=== PATIENT | female | born 1985 | race African-American/Black ===

== ENCOUNTER 2022-12-13 20:53 | Inpatient (IN) | payer OTHER ==
[2022-12-13] MEDS ORDERED: Ondansetron PF 4 MG/2 ML Vial IVP PRN (20:56)
[2022-12-13] MEDS ORDERED: hydrALAZINE 20 MG/ML VIAL SLOW IVP PRN ×2 (20:56→23:59)
[2022-12-13] MEDS ORDERED: Promethazine HCl 25 MG/ML VIAL IM PRN (20:56)
[2022-12-13] MEDS ORDERED: Lactated Ringer's 1,000 ML IV SCH ×2 (21:30→22:00)
[2022-12-13 21:41] VITALS: BMI 39.9
[2022-12-13 21:44] LABS: Acetaminophen Less than 10.0 mcg/mL (10.0-30.0); Alcohol Less than 10 mg/dL (Less than 10); Salicylate Less than 8.0 mg/dL (15.0-30.0)
[2022-12-13] MEDS ORDERED: Acetaminophen 500 MG TAB PO SCH (21:45)
[2022-12-13 21:46] LABS: Bilirubin Neg (Negative); Blood, Urine 50 (Negative); Clarity Slightly Cloudy (Clear); Glucose, Urine (Dipstick) >=1000 mg/dL (Negative); Ketone, Urine 50 mg/dL (Negative); Leukocyte 25 (Negative); Nitrite Negative (Negative); Protein, Urine (Dipstick) 500 mg/dl (Neg-Trace); Urobilinogen Normal mg/dL (Less than 2)
[2022-12-13 21:55] LABS: Amphetamine Not Detected (NotDetected); Barbiturates Screen Not Detected (NotDetected); Benzodiazepine Screen Not Detected (NotDetected); Cocaine Metabolite Screen Not Detected (NotDetected); Methadone Not Detected (NotDetected); Methamphetamine Not Detected (NotDetected); Opiate Screen Not Detected (NotDetected); Oxycodone Screen Not Detected (NotDetected); Phencyclidine (PCP) Not Detected (NotDetected); THC/Cannabinoid Screen Detected (NotDetected); Tricyclic Screen Not Detected (NotDetected)
[2022-12-13] MEDS ORDERED: Dextrose 5% in Water 1,000 ML IV PRN (21:56)
[2022-12-13] MEDS ORDERED: Dextrose 50% Abboject 50 ML SYRINGE SLOW IVP PRN (21:56)
[2022-12-13] MEDS ORDERED: HumaLOG 300 UNITS/3 ML VIAL SC PRN (21:56)
[2022-12-13 22:12] LABS: Fetal Membranes Rupture No Membranes Rupture (No Rupture)
[2022-12-13] MEDS ORDERED: Lantus 1000 UNITS/10 ML VIAL SC SCH (22:15)
[2022-12-13] MEDS ORDERED: Famotidine/PF 20 mg/2ml Vial SLOW IVP PRN (22:19)
[2022-12-13] MEDS ORDERED: Bicitra 30 ML UDCUP PO PRN (22:19)
[2022-12-13 22:23] LABS: Bacteria/HPF Rare-Few HPF (None Seen); Mucous/LPF 1+ LPF (<2+)
[2022-12-13 22:27] LABS: HBSAg Index 0.11 S/CO (0-0.99); HIV (1/2) Antibody/Antigen Non-Reactive (NonReactive); HIV 1/2 INDEX 0.12 S/CO (<1.00); Hep B Surf Ag Non-Reactive S/CO (NonReactive); Syphilis Antibody Nonreactive (Nonreactive); Syphilis Antibody Index 0.05 S/CO (<1.00 Non-Reactive); Thyroid Stimulating Hormone 2.2277 uIU/mL (0.35-4.94)
[2022-12-13] MEDS ORDERED: CEFAZOLIN 2 GM in Sodium Chloride 0.9% 100 ML IVPB SCH (22:30)
[2022-12-13] MEDS ORDERED: Fentanyl 100 MCG/2 ML VIAL ONE (22:33)
[2022-12-13] MEDS ORDERED: Morphine PF 10 MG/10 ML VIAL ONE (22:33)
[2022-12-13] MEDS ORDERED: Carboprost 250 MCG/ML AMP ONE (22:48)
[2022-12-13] MEDS ORDERED: Misoprostol 200 MCG TAB ONE (22:48)
[2022-12-13] MEDS ORDERED: Methylergonovine 0.2 MG/ML VIAL ONE (22:48)
[2022-12-13] MEDS ORDERED: Tranexamic Acid 1,000 MG/10 ML VIAL ONE (22:48)
[2022-12-13] MEDS ORDERED: Azithromycin 500 MG in Sodium Chloride 0.9% 250 ML 250 ML IVPB SCH (23:00)
[2022-12-13 23:08] LABS: Glucose 287 mg/dL (70-105)
[2022-12-13] MEDS ORDERED: Ondansetron PF 4 MG/2 ML Vial ONE (23:27)
[2022-12-13] MEDS ORDERED: Phenylephrine 10 MG/ML VIAL ONE (23:28)
[2022-12-13] MEDS ORDERED: Dexamethasone 4 mg/ml Vial ONE (23:28)
[2022-12-13] MEDS ORDERED: NS w/ Oxytocin 30 units 500 ML IV SCH (23:45)
[2022-12-13] MEDS ORDERED: Acetaminophen 325 MG TAB PO PRN (23:59)
[2022-12-13] MEDS ORDERED: Zolpidem Tartrate 5 MG TAB PO PRN (23:59)
[2022-12-13] MEDS ORDERED: Simethicone Chewable 80 MG TAB PO PRN (23:59)
[2022-12-13] MEDS ORDERED: Boostrix 0.5 ML (Tdap) VIAL (>/=7 yrs of age) IM ONE (23:59)
[2022-12-13] MEDS ORDERED: Lanolin Ointment 7 GM TUBE TOP PRN (23:59)
[2022-12-14] MEDS ORDERED: Ketorolac Tromethamine 30 MG/ML VIAL ONE (00:15)
[2022-12-14] MEDS ORDERED: Promethazine HCl 25 MG SUPP PR PRN (01:03)
[2022-12-14] MEDS ORDERED: Naloxone HCl 0.4 mg/ml Vial IV PRN (01:03)
[2022-12-14] MEDS ORDERED: Naloxone HCl 0.4 mg/ml Vial IVP PRN ×2 (01:03)
[2022-12-14] MEDS ORDERED: Fentanyl 100 MCG/2 ML VIAL SLOW IVP PRN (01:03)
[2022-12-14] MEDS ORDERED: Promethazine HCl 25 MG/ML VIAL IM PRN (01:03)
[2022-12-14] MEDS ORDERED: Meperidine HCl/PF 25 MG/ML VIAL SLOW IVP PRN (01:03)
[2022-12-14] MEDS ORDERED: HYDROmorphone 2 MG/ML VIAL SLOW IVP PRN (01:03)
[2022-12-14] MEDS ORDERED: Ondansetron HCl/PF 4 MG/2 ML Vial IVP PRN (01:03)
[2022-12-14] MEDS ORDERED: Ondansetron PF 4 MG/2 ML Vial IVP PRN (01:03)
[2022-12-14] MEDS ORDERED: Moisturizing Cream (Eucerin) 113 GM JAR TOP PRN (01:03)
[2022-12-14] MEDS ORDERED: Ketorolac Tromethamine 30 MG/ML VIAL IVP SCH (01:15)
[2022-12-14] MEDS ORDERED: Communication Order-Pharmacy FS SCH (01:15)
[2022-12-14 01:58] LABS: #Monocytes 0.3 10x3/uL (0.0-1.1); #Neutrophils 6.1 10x3/uL (1.5-8.4); %Basophils 0.1 % (0.0-2.0); %Lymphocytes 10.9 % (18.0-47.0); %Monocytes 4.5 % (0.0-10.0); %Neutrophils 84.4 % (40.0-75.0); Hemoglobin 9.4 g/dL (12.0-15.5); Mean Corpuscular HGB CONC 31.5 g/dL (32.0-36.0); Mean Corpuscular Hemoglobin 24.3 pg (27.0-33.0); Mean Platelet Volume 10.9 fl (7.4-10.4); Platelet Count 251 10x3/uL (150-450); RBC Distribution Width 15.9 % (11.5-14.5); Red Blood Cell (RBC) Count 3.87 10x6/uL (3.90-5.03); White Blood Cell (WBC) Count 7.3 10x3/uL (3.5-10.5)
[2022-12-14 04:12] LABS: #Monocytes 0.5 10x3/uL (0.0-1.1); #Neutrophils 8.4 10x3/uL (1.5-8.4); %Basophils 0.1 % (0.0-2.0); %Lymphocytes 7.5 % (18.0-47.0); %Monocytes 4.7 % (0.0-10.0); %Neutrophils 87.3 % (40.0-75.0); Hemoglobin 9.2 g/dL (12.0-15.5); Mean Corpuscular HGB CONC 31.7 g/dL (32.0-36.0); Mean Corpuscular Hemoglobin 24.5 pg (27.0-33.0); Mean Corpuscular Volume 77.3 fl (81.6-98.3); Mean Platelet Volume 11.5 fl (7.4-10.4); Platelet Count 255 10x3/uL (150-450); RBC Distribution Width 15.8 % (11.5-14.5); Red Blood Cell (RBC) Count 3.75 10x6/uL (3.90-5.03); White Blood Cell (WBC) Count 9.6 10x3/uL (3.5-10.5)
[2022-12-14 04:23] LABS: ALT (SGPT) 10 U/L (8-55); AST (SGOT) 10 U/L (5-34); Albumin 2.9 g/dL (3.5-5.0); Alkaline Phosphatase 83 U/L (40-110); Anion Gap 16 mmol/L (10-20); BUN (Urea Nitrogen) 9 mg/dL (7.0-18.7); Bilirubin, Total 0.3 mg/dL (0.2-1.2); Calc. Creatinine Clearance 167 mL/min (70-130); Calcium 8.7 mg/dL (7.8-10.44); Carbon Dioxide 16 mmol/L (22-29); Chloride 101 mmol/L (98-107); Estimated GFR 98; Glucose 326 mg/dL (70-105); Potassium 4.1 mmol/L (3.5-5.1); Protein, Total 6.9 g/dL (6.0-8.3); Sodium 129 mmol/L (136-145)
[2022-12-14] MEDS: diphenhydrAMINE 50 MG/ML VIAL IVP PRN ×2 (05:01→09:12)
[2022-12-14] MEDS: Ketorolac Tromethamine 30 MG/ML VIAL IVP PRN ×3 (05:48→21:06)
[2022-12-14] MEDS ORDERED: Ampicillin/Sulbactam 1.5 GM in Sodium Chloride 0.9% 100 ML IVPB SCH (06:00)
[2022-12-14] MEDS ORDERED: Ibuprofen 800 MG TAB PO SCH (06:00)
[2022-12-14] MEDS: HumaLOG 300 UNITS/3 ML VIAL SC PRN ×6 (06:20→21:18)
[2022-12-14] MEDS ORDERED: Lantus 1000 UNITS/10 ML VIAL SC SCH ×2 (06:30→21:00)
[2022-12-14] MEDS ORDERED: Lactated Ringer's 1,000 ML IV SCH ×2 (06:30→07:19)
[2022-12-14] MEDS: Prenatal Vitamin 1 TAB PO SCH (07:35)
[2022-12-14] MEDS: Ferrous Sulfate 325 MG TAB PO SCH ×2 (07:35→21:04)
[2022-12-14] MEDS: Docusate 100 MG CAP PO SCH ×2 (07:35→21:04)
[2022-12-14 10:34] LABS: Amphetamine Not Detected (NotDetected); Barbiturates Screen Not Detected (NotDetected); Benzodiazepine Screen Not Detected (NotDetected); Cocaine Metabolite Screen Not Detected (NotDetected); Methadone Not Detected (NotDetected); Methamphetamine Not Detected (NotDetected); Opiate Screen Not Detected (NotDetected); Oxycodone Screen Not Detected (NotDetected); Phencyclidine (PCP) Not Detected (NotDetected); THC/Cannabinoid Screen Not Detected (NotDetected); Tricyclic Screen Not Detected (NotDetected)
[2022-12-14] MEDS: Ampicillin/Sulbactam 3 GM in Sodium Chloride 0.9% 100 ML IVPB SCH ×2 (12:43→17:53)
[2022-12-14 13:01] LABS: Hemoglobin A1c 10.9 % (4.0-6.0)
[2022-12-14 13:57] LABS: Hep C IgG Ab Non-Reactive (NonReactive)
[2022-12-14] MEDS: HYDROcodone/Acetaminophen 5/325 mg Tablet PO PRN ×2 (14:29→21:04)
[2022-12-14 14:43] LABS: Anion Gap 12 mmol/L (10-20); BUN (Urea Nitrogen) 10 mg/dL (7.0-18.7); Calc. Creatinine Clearance 197 mL/min (70-130); Calcium 8.5 mg/dL (7.8-10.44); Carbon Dioxide 18 mmol/L (22-29); Chloride 105 mmol/L (98-107); Estimated GFR 116; Glucose 189 mg/dL (70-105); Potassium 3.8 mmol/L (3.5-5.1); Sodium 131 mmol/L (136-145)
[2022-12-15] MEDS: Ampicillin/Sulbactam 3 GM in Sodium Chloride 0.9% 100 ML IVPB SCH ×3 (00:12→12:35)
[2022-12-15] MEDS: HumaLOG 300 UNITS/3 ML VIAL SC PRN ×3 (00:25→12:38)
[2022-12-15 04:23] LABS: Anion Gap 12 mmol/L (10-20); BUN (Urea Nitrogen) 13 mg/dL (7.0-18.7); Calc. Creatinine Clearance 209 mL/min (70-130); Calcium 8.4 mg/dL (7.8-10.44); Carbon Dioxide 19 mmol/L (22-29); Chloride 106 mmol/L (98-107); Estimated GFR 117; Glucose 139 mg/dL (70-105); Potassium 3.5 mmol/L (3.5-5.1); Sodium 133 mmol/L (136-145)
[2022-12-15] MEDS: HYDROcodone/Acetaminophen 5/325 mg Tablet PO PRN ×3 (05:00→13:59)
[2022-12-15] MEDS: Ibuprofen 800 MG TAB PO SCH ×3 (06:36→21:37)
[2022-12-15] MEDS: Docusate 100 MG CAP PO SCH ×2 (08:37→21:37)
[2022-12-15] MEDS: Ferrous Sulfate 325 MG TAB PO SCH ×2 (08:37→21:37)
[2022-12-15] MEDS: metFORMIN 500 MG TAB PO SCH ×2 (08:37→17:09)
[2022-12-15] MEDS: Prenatal Vitamin 1 TAB PO SCH (08:37)
[2022-12-15] MEDS: Lantus 1000 UNITS/10 ML VIAL SC SCH ×2 (08:39→21:45)
[2022-12-15] MEDS ORDERED: Lantus 1000 UNITS/10 ML VIAL SC SCH ×2 (09:00)
[2022-12-15 12:42] LABS: Chlamydia by PCR *Indeterminate (NotDetected); GC by PCR *Indeterminate (NotDetected)
[2022-12-15 16:22] LABS: pH (Cord, venous) 6.828 (7.250-7.350)
[2022-12-15] MEDS ORDERED: Amoxicillin/Potassium Clav 875 MG TAB PO SCH (17:00)
[2022-12-15] MEDS ORDERED: Iopamidol 300 61% 100 ML VIAL FS ONE (18:12)
[2022-12-16] MEDS: HYDROcodone/Acetaminophen 5/325 mg Tablet PO PRN ×3 (00:49→15:28)
[2022-12-16] MEDS: Ibuprofen 800 MG TAB PO SCH ×3 (05:26→21:20)
[2022-12-16] MEDS: metFORMIN 500 MG TAB PO SCH ×2 (07:58→17:30)
[2022-12-16] MEDS: Ferrous Sulfate 325 MG TAB PO SCH ×2 (07:58→21:20)
[2022-12-16] MEDS: Lantus 1000 UNITS/10 ML VIAL SC SCH ×2 (07:58→21:20)
[2022-12-16] MEDS: Docusate 100 MG CAP PO SCH ×2 (07:58→21:20)
[2022-12-16] MEDS: Amoxicillin/Potassium Clav 875 MG TAB PO SCH ×2 (09:24→21:20)
[2022-12-16] MEDS: Prenatal Vitamin 1 TAB PO SCH (09:25)
[2022-12-16] MEDS: Chlorhexidine Gluconate 15 ML UDCUP SSP SCH ×2 (09:25→21:20)
[2022-12-17] MEDS: HYDROcodone/Acetaminophen 5/325 mg Tablet PO PRN ×3 (05:39→14:32)
[2022-12-17] MEDS: Ibuprofen 800 MG TAB PO SCH ×2 (05:39→14:01)
[2022-12-17] MEDS: HumaLOG 300 UNITS/3 ML VIAL SC PRN (05:48)
[2022-12-17] MEDS: Chlorhexidine Gluconate 15 ML UDCUP SSP SCH (08:54)
[2022-12-17] MEDS: metFORMIN 500 MG TAB PO SCH ×2 (08:55→17:16)
[2022-12-17] MEDS: Prenatal Vitamin 1 TAB PO SCH (08:55)
[2022-12-17] MEDS: Ferrous Sulfate 325 MG TAB PO SCH (08:55)
[2022-12-17] MEDS: Amoxicillin/Potassium Clav 875 MG TAB PO SCH (08:55)
[2022-12-17] MEDS: Docusate 100 MG CAP PO SCH (08:55)
[2022-12-17] MEDS: Lantus 1000 UNITS/10 ML VIAL SC SCH (08:55)
[2022-12-17 10:33] VITALS: BP 140/77; TEMP 98.5
== END 2022-12-17 17:25 | disposition home or self-care (01) | DRG 786 ==
LOC: CSHLD/OP 20:53 → CSHLD 22:38 → CSHPP 12-14 03:20
PROVIDERS: ADMIT Obstetrics & Gynecology; ATTEND Obstetrics & Gynecology
PROC: 10D00Z1 Extraction of Products of Conception, Low, Open Approach (ICD-10-PCS; principal; 2022-12-13)
PROC: 4A133R1 Monitoring of Arterial Saturation, Peripheral, Percutaneous Approach (ICD-10-PCS; 2022-12-13)
PROC: 0W930ZZ Drainage of Oral Cavity and Throat, Open Approach (ICD-10-PCS; 2022-12-14)
DX: O60.14X0 Preterm labor third trimester with preterm delivery third trimester, not applicable or unspecified (principal); O24.12 Pre-existing type 2 diabetes mellitus, in childbirth; Z3A.36 36 weeks gestation of pregnancy; Z37.0 Single live birth; Z20.822 Contact with and (suspected) exposure to COVID-19; K21.9 Gastro-esophageal reflux disease without esophagitis; F32.A Depression, unspecified; O99.62 Diseases of the digestive system complicating childbirth; O99.344 Other mental disorders complicating childbirth; Z88.8 Allergy status to other drugs, medicaments and biological substances; F17.210 Nicotine dependence, cigarettes, uncomplicated; O99.334 Smoking (tobacco) complicating childbirth; K04.7 Periapical abscess without sinus; E11.65 Type 2 diabetes mellitus with hyperglycemia; O34.211 Maternal care for low transverse scar from previous cesarean delivery; E66.9 Obesity, unspecified; O99.214 Obesity complicating childbirth; O76 Abnormality in fetal heart rate and rhythm complicating labor and delivery; N73.6 Female pelvic peritoneal adhesions (postinfective); O99.892 Other specified diseases and conditions complicating childbirth
CPT/HCPCS: 36415; 36416; 51702; 70487; 76816; 76819; 80048; 80053; 80306; 80307; 81001; 82010; 82805; 83036; 84112; 84443; 85025; 85652; 86762; 86780; 86803; 86850; 86900; 86901; 86922; 87340; 87389; 87480; 87491; 87510; 87591; 87660; 88307; 99285; J0295; J1100; J1200; J1815; J1885; J2274; J2370; J2405; J3010; J3490; J7120; Q9967; U0003; U0005